=== PATIENT | male | born 1935 | race Caucasian/White ===

== ENCOUNTER 2020-10-21 10:23 | Emergency (ER) | payer MEDICARE, OTHER ==
[2020-10-21 10:28] VITALS: BP 152/72
[2020-10-21] MEDS ORDERED: ASPIRIN E.C. 8181 MG (10:39)
[2020-10-21] MEDS ORDERED: CALCIUM 600 MG-1 TAB PO (10:39)
[2020-10-21] MEDS ORDERED: MULTI-VITAMIN1 EACH PO (10:40)
[2020-10-21] MEDS ORDERED: LISINOPRIL20 MG PO (10:40)
[2020-10-21] MEDS ORDERED: TRELEGY ELLIPT1 EACH IH (10:40)
[2020-10-21 12:45] LABS: BASO # 0.04 (0.02-0.10); HEMATOCRIT 42.9 % (42.0-52.0); HEMOGLOBIN 13.9 g/dL (13.5-18.0); LYMPH# 1.37 (1.50-4.00); MEAN CELL VOLUME 94 fl (78-100); MEAN CORPUSCULAR HEMOGLOBIN 30 pg (27-31); MEAN CORPUSCULAR HGB CONC 32 g/dL (33-37); MEAN PLATELET VOLUME 9.3 fl (7.4-10.4); MONO # 0.86 (0.20-0.80); NEU # 4.27 (1.40-6.50); PLATELET COUNT 275 K/mm3 (130-400); RED BLOOD COUNT 4.58 M/mm3 (4.20-5.60); RED CELL DISTRIBUTION WIDTH 12.4 % (11.5-14.5); WHITE BLOOD COUNT 6.8 K/mm3 (4.8-10.8)
[2020-10-21 12:52] LABS: ALBUMIN 3.9 g/dL (3.4-4.8); POTASSIUM 4.5 mmol/L (3.5-5.1)
[2020-10-21 12:55] LABS: TOTAL PROTEIN 7.8 g/dL (6.2-8.1)
[2020-10-21 12:56] LABS: URINE APPEARANCE HAZY; URINE COLOR YELLOW; URINE GLUCOSE NEGATIVE (NEGATIVE); URINE KETONE NEGATIVE (NEGATIVE); URINE NITRATE NEGATIVE (NEGATIVE); URINE PROTEIN(semi-quant) NEGATIVE (NEGATIVE); URINE UROBILINOGEN NORMAL (NORMAL)
[2020-10-21 12:57] LABS: URINE BLOOD TRACE (NEGATIVE); URINE LEUKOCYTE ESTERASE NEGATIVE (NEGATIVE)
[2020-10-21 12:57] LABS: TOTAL BILIRUBIN 0.3 mg/dL (0.2-1.2)
[2020-10-21 13:34] LABS: URINE BILIRUBIN 1+ (NEGATIVE)
[2020-10-21 14:30] LABS: LIPASE 944 U/L (8-78)
[2020-10-21] MEDS ORDERED: PANTOPRAZOLE SO40 MG PO (14:32)
[2020-10-21] MEDS ORDERED: NORCO 325 MG-51 TA1 PO (14:32)
== END 2020-10-21 14:44 | disposition home or self-care (01) ==
LOC: ED 10:23
PROVIDERS: Family Medicine
DX: I71.4 Abdominal aortic aneurysm, without rupture (principal); K86.89 Other specified diseases of pancreas; K85.90 Acute pancreatitis without necrosis or infection, unspecified; I10 Essential (primary) hypertension; J44.9 Chronic obstructive pulmonary disease, unspecified; Z90.49 Acquired absence of other specified parts of digestive tract; Z87.891 Personal history of nicotine dependence; Z79.899 Other long term (current) drug therapy
CPT/HCPCS: C9113; Q9967

== ENCOUNTER → 2020-11-07 | Outpatient (CLI) | payer MEDICARE, OTHER ==
[~2020-11-07] MED LIST: ASPIRIN E.C. 8181 MG; CALCIUM 600 MG-1 TAB PO; LISINOPRIL20 MG PO; MULTI-VITAMIN1 EACH PO; NORCO 325 MG-51 TA1 PO; PANTOPRAZOLE SO40 MG PO; TRELEGY ELLIPT1 EACH IH
== END ==
LOC: RAD 10-26 10:00
DX: K86.89 Other specified diseases of pancreas (principal); I71.4 Abdominal aortic aneurysm, without rupture; Q79.1 Other congenital malformations of diaphragm
CPT/HCPCS: Q9967